=== PATIENT | female | born 1975 ===

== ENCOUNTER → 2018-08-28 | Outpatient (CLI) | payer OTHER | END | disposition home or self-care (01) | LOC: NUCLEAR 10:49 | DX: M81.0 Age-related osteoporosis without current pathological fracture (principal) ==

== ENCOUNTER 2020-11-01 08:00 | Outpatient (CLI) | payer OTHER | END 2020-11-01 15:55 | disposition home or self-care (01) | LOC: LAB 08:00 | PROVIDERS: ATTEND Internal Medicine Sports Medicine | DX: D64.89 Other specified anemias (principal); E11.9 Type 2 diabetes mellitus without complications; E78.2 Mixed hyperlipidemia; I10 Essential (primary) hypertension; E03.8 Other specified hypothyroidism ==

== ENCOUNTER 2020-11-01 09:56 | Outpatient (CLI) | payer OTHER | END 2020-11-01 10:02 | disposition home or self-care (01) | LOC: MAMO-SONO 09:56 | PROVIDERS: ATTEND Internal Medicine Sports Medicine | DX: R92.0 Mammographic microcalcification found on diagnostic imaging of breast (principal); Z12.31 Encounter for screening mammogram for malignant neoplasm of breast; Z87.898 Personal history of other specified conditions; C73 Malignant neoplasm of thyroid gland; N64.59 Other signs and symptoms in breast ==

== ENCOUNTER 2020-11-01 11:06 | Outpatient (CLI) | payer OTHER | END 2020-11-01 11:07 | disposition home or self-care (01) | LOC: NUCLEAR 11:06 | PROVIDERS: ATTEND Internal Medicine Sports Medicine | DX: M81.0 Age-related osteoporosis without current pathological fracture (principal) ==

== ENCOUNTER 2021-01-29 12:33 | Outpatient (CLI) | payer OTHER | END 2021-01-29 12:47 | disposition home or self-care (01) | LOC: SONOGRAMA 12:33 | PROVIDERS: ATTEND Surgery | DX: D24.1 Benign neoplasm of right breast (principal); D24.2 Benign neoplasm of left breast; N60.11 Diffuse cystic mastopathy of right breast; N60.12 Diffuse cystic mastopathy of left breast; R92.0 Mammographic microcalcification found on diagnostic imaging of breast ==